=== PATIENT | female | born 1995 | race Caucasian/White ===

== ENCOUNTER → 2021-02-03 13:57 | Outpatient (CLI) | payer OTHER, SELFPAY ==
[2021-02-03 15:23] LABS: TSH w/ Reflex to FT4 1.08 uIU/mL (0.47-4.68)
== END ==
PROVIDERS: PCP Family Medicine; Referring Provider Family Medicine; Visit Provider Family Medicine
DX: F32.A Depression, unspecified (principal); G43.909 Migraine, unspecified, not intractable, without status migrainosus
CPT/HCPCS: 36415; 84443

== ENCOUNTER → 2021-03-25 15:59 | Outpatient (CLI) | payer OTHER, SELFPAY ==
--- NOTE | 2021-03-25 16:04 | DI.RAD.S_ITS ---
PROCEDURE: XR CERVICAL SPINE 2V OR 3V INDICATIONS: chronic neck pain TECHNIQUE: 3 view(s) of the cervical spine were acquired. COMPARISON: None. FINDINGS: Bones: No fractures or dislocations to the T1 level. The lateral masses of C1 appear intact on the odontoid view. No suspicious bony lesions. Soft tissues: No prevertebral soft tissue swelling. IMPRESSION: No acute osseous abnormality. Dictated by: Law Rodriguez M.D. on 03/25/2021 at 16:27 Approved by: Law Rodriguez M.D. on 03/25/2021 at 16:28
== END ==
PROVIDERS: PCP Family Medicine; Referring Provider Family Medicine; Visit Provider Family Medicine
DX: M54.2 Cervicalgia (principal); G89.29 Other chronic pain; M41.9 Scoliosis, unspecified
CPT/HCPCS: 72040

== ENCOUNTER → 2021-07-03 15:50 | Outpatient (CLI) | payer OTHER, SELFPAY ==
[2021-07-03 16:43] LABS: COVID19 -Nasal RAPID Negative (Negative)
== END ==
PROVIDERS: PCP Family Medicine; Visit Provider Specialist
DX: Z01.812 Encounter for preprocedural laboratory examination (principal); Z20.822 Contact with and (suspected) exposure to COVID-19
CPT/HCPCS: 87635

== ENCOUNTER 2021-07-04 09:56 | Day surgery (SDC) | payer OTHER, SELFPAY ==
[2021-07-01 10:37] VITALS: BMI 32.9
[2021-07-04 10:04] VITALS: BP 130/74; PULSE 84; RESP 15; TEMP 36.6; O2SAT 100; BMI 32.9
[2021-07-04] MEDS: LACTATED RINGERS 1,000 ML 100 ML IV (10:19)
--- NOTE | 2021-07-04 10:58 | SUR.OPER ---
Lithotomy on padded OR bed, head on pillow, arms secured on padded arm boards at <90 degrees abduction. Legs secured in padded yellow fins stirrups.
--- NOTE | 2021-07-04 11:01 | PM.PREOP ---
Pre-operative Note COVID-19 COVID-19 status: Negative Result date/Date tested (Pos, Neg/Pending): 07/03/21 Criteria for continued procedure: Non-surgical alternatives not available or appropriate per current SOC Interval Note History & Physical reviewed/Exam performed by Physician: Yes Changes to H&P: No
--- NOTE | 2021-07-04 11:30 | PM.OP.1 ---
Operative Date/Time/Diagnoses Date of procedure: 07/04/21 Time of procedure: 11:30 Pre-op diagnosis: Retained IUD and placement of new Mirena IUD Post-op diagnosis: same Procedure & Clinicians Procedure: Cervical dilation with removal of retained IUD and placement of Mirena IUD Same procedure as scheduled: Yes Indications: Patient with Mirena IUD unable to be removed in office for removal and replacement of new Mirena IUD Surgeon: Lucretia Ely Click Yes if Unassisted: Yes Anesthesia Type: General Operative Notes Findings: Retained Mirena IUD and successful placement of new Mirena IUD Closure Type: not applicable Specimen(s): none sent Estimated Blood Loss (mL): 1 Blood products transfused: none Procedure in detail: Patient was brought to the operating room where she underwent general anesthesia. She was placed in supine position in low Yellofin stirrups and prepped and draped in the usual sterile fashion. Warming was with blankets. Pulsatile stockings were in place and functional. No antibiotics were indicated. A check system was reviewed with staff in the room prior to beginning the case. A single-tooth tenaculum was placed on the anterior lip of the cervix and the cervix dilated to a #6 Hegar dilator. Attempts with polyp forceps followed by curettage a eventually return to using polyp forceps allowed the old Mirena IUD to be removed. The uterus was sounded to approximally 8 cm and a new Mirena IUD was placed without difficulty and strings cut to 4 cm. Patient went to recovery room in good condition. Counts of instruments and sponges were correct. Complications: none Post-operative Condition: stable Disposition: same day surgery Plan for aftercare: Home when awake and stable
[2021-07-04 11:38] VITALS: BP 121/76; PULSE 73; RESP 16; TEMP 36.2; O2SAT 98
[2021-07-04 11:43] VITALS: BP 121/76; PULSE 73; RESP 16; O2SAT 100
[2021-07-04 11:48] VITALS: BP 117/66; PULSE 72; RESP 16; O2SAT 98
[2021-07-04 11:55] VITALS: BP 113/72; PULSE 80; RESP 16; TEMP 37.1; O2SAT 98
[2021-07-04 12:05] VITALS: BP 130/74; PULSE 80; RESP 18; TEMP 36.6; O2SAT 99
== END 2021-07-04 12:15 | disposition home or self-care (01) ==
PROVIDERS: PCP Family Medicine; Referring Provider Specialist; Visit Provider Specialist
PROC: (CPT 58301; principal; 2021-07-04 11:15)
DX: Z30.433 Encounter for removal and reinsertion of intrauterine contraceptive device (principal)
CPT/HCPCS: 58301; 58300; 81025; J1100; J1885; J2704; J3010; J7298